=== PATIENT | female | born 1975 | race Caucasian/White ===

== ENCOUNTER → 2016-07-08 | Outpatient (CLI) | payer OTHER ==
--- NOTE | 2016-07-08 11:59 | MA ---
Screening Digital Mammogram With iCAD Analysis Clinical Indications: Routine screening. Her mother was diagnosed with breast cancer in her 40s and a n aunt in her 50s. The patient has had a benign MR guided left breast biopsy. Technique: Standard cephalocaudal projections are obtained. Digital breast tomosynthesis was performe d in the MLO projection with reconstruction at 1.0 mm slice thickness and composite MLO views reconst ructed. This examination is processed by the iCAD computer aided detection system. Breast density: Type C: Heterogeneously dense. Comparison: May 2015, April 2014, December 2012, August 2011, May 2010, May 2009. Findings: CAD was reviewed. No masses, suspicious calcifications or secondary signs of malignancy are seen. There has been no significant change in the appearance of either breast. Impression: Negative mammogram. BI-RADS 1. Recommendation: Routine mammographic screening in one year as long as physical examination is negativ e in this patient with heterogeneously dense breast parenchyma. [facility] will send a result letter to the patient. Negative mammography should not preclude additional workup of a clinically suspicious finding. The patient's information is entered into a reminder system with a target due date for her next mammo gram.
== END ==
LOC: FIMAGING 09:04
DX: Z12.31 Encounter for screening mammogram for malignant neoplasm of breast (principal); Z80.3 Family history of malignant neoplasm of breast
CPT/HCPCS: G0202

== ENCOUNTER 2017-03-07 01:44 | Emergency (ER) | payer OTHER ==
[2017-03-07 01:49] VITALS: RESP 16; TEMP 99.5
--- NOTE | 2017-03-07 01:55 | CPEKG ---
Heart Rate: 67 RR Interval: 896 P-R Interval: 128 QRSD Interval: 86 QT Interval: 416 QTC Interval: 439 P [place]: 49 QRS [place]: 51 T Wave [place]: -8 EKG Severity - ABNORMAL ECG - EKG Impression: SINUS RHYTHM EKG Impression: MULTIPLE VENTRICULAR PREMATURE COMPLEXES EKG Impression: BORDERLINE T ABNORMALITIES, INFERIOR LEADS Electronically Signed By: Susan Gilmore 07-Mar-2017 07:52:34
[2017-03-07] MEDS ORDERED: NS 1,000 ML IV ONE (02:05)
--- NOTE | 2017-03-07 02:09 | EDPHY ---
H & P Stated Complaint: PALPATIONS Time Seen by Provider: 03/07/17 01:52 HPI/ROS: HPI The patient presents with palpitations which began at approximately 1:35 a.m. and awoke her from sleep. They occur approximately once every 5 beats she thinks and have been constant since they started. This is made her somewhat anxious. She has a history of intermittent palpitations that occur when she runs or during her , however this is been the longus lasting episode. She does not have any associated chest pain, shortness of breath, nausea or vomiting. She did eat some sour seeds before going to bed. She had a prior evaluation for palpitations at [facility]. She had a normal stress test.. REVIEW OF SYSTEMS Constitutional: No fever, no chills. Eyes: No discharge. ENT: No sore throat. Cardiovascular: No chest pain, positive for palpitations. Respiratory: No cough, no shortness of breath. Gastrointestinal: No abdominal pain, no vomiting. Genitourinary: No hematuria. Musculoskeletal: No back pain. Skin: No rashes. Neurological: No headache. PMHx: Healthy Soc Hx: Lives at home with and children PHYSICAL General Appearance: Alert, no distress Eyes: Pupils equal and round no pallor or injection ENT, Mouth: Mucous membranes moist Respiratory: There are no retractions, lungs are clear to auscultation Cardiovascular: Regular rate and rhythm Gastrointestinal: Abdomen is soft and non-tender, no masses, bowel sounds normal Neurological: A&O, moves all extremities Skin: Warm and dry, no rashes Musculoskeletal: Neck is supple non tender Extremities: symmetrical, full range of motion Psychiatric: Patient is oriented X 3, there is no agitation Source: Patient Exam Limitations: No limitations - Personal History LMP (Females 10-55): Now Current Tetanus Diphtheria and Acellular Pertussis (TDAP): Yes - Medical/Surgical History Hx Diabetes: No Other PMH: HYPOTHYROID, TONSILECTOMY - Social History Smoking Status: Never smoked Constitutional: Initial Vital Signs Temperature (C) 37.5 C 03/07/17 01:46 Heart Rate 68 03/07/17 01:46 Respiratory Rate 16 03/07/17 01:46 Blood Pressure 149/83 H 03/07/17 01:46 O2 Sat (%) 99 03/07/17 01:46 O2 Delivery Mode Room Air Allergies/Adverse Reactions: ERYTHROMYCIN Allergy (Uncoded 03/16/12 13:01) Abdominal Cramping Home Medications: Medication Instructions Recorded Adderall 03/07/17 Control Pill 03/07/17 Synthroid 03/07/17 Medical Decision Making - Diagnostics EKG Interpretation: EKG: Complete interpretation has been separately recorded in the [employer] archive. Summary impression: Occasional PVCs Differential Diagnosis: This is a 41-year-old healthy female with history of intermittent palpitations who presents with nearly an hour of constant palpitations that awoke her from sleep. Differential diagnosis includes PACs, PVCs, atrial fibrillation, ACS. In the emergency department, patient was placed on the monitor technician which did demonstrate PVCs without any episodes of V-tach. She had basic labs and electrolytes checked including a troponin, all were unremarkable. She was given a L of fluid for presumed volume depletion. She did not have any chest pain or shortness of breath. She will be discharged home with follow up with Cardiology as needed. We have discussed decreasing caffeine use, alcohol use, plenty of sleep and plenty of fluids. - Data Points Laboratory Results: Laboratory Results 03/07/17 02:02 03/07/17 02:02 03/07/17 03/07/17 02:02 02:02 WBC 7.20 10^3/uL 10^3/uL (3.80-9.50) RBC 4.54 10^6/uL 10^6/uL (4.18-5.33) Hgb 14.2 g/dL g/dL (12.6-16.3) Hct 40.5 % % (38.0-47.0) MCV 89.2 fL fL (81.5-99.8) MCH 31.3 pg pg (27.9-34.1) MCHC 35.1 g/dL g/dL (32.4-36.7) RDW 11.9 % % (11.5-15.2) Plt Count 277 10^3/uL 10^3/uL (150-400) MPV 10.9 fL fL (8.7-11.7) Neut % (Auto) 44.9 % % (39.3-74.2) Lymph % (Auto) 46.0 % H % (15.0-45.0) [place] % (Auto) 7.8 % % (4.5-13.0) Eos % (Auto) 0.6 % % (0.6-7.6) Baso % (Auto) 0.6 % % (0.3-1.7) Nucleat RBC Rel Count 0.0 % % (0.0-0.2) Absolute Neuts (auto) 3.24 10^3/uL 10^3/uL (1.70-6.50) Absolute Lymphs (auto) 3.31 10^3/uL H 10^3/uL (1.00-3.00) Absolute Monos (auto) 0.56 10^3/uL 10^3/uL (0.30-0.80) Absolute Eos (auto) 0.04 10^3/uL 10^3/uL (0.03-0.40) Absolute Basos (auto) 0.04 10^3/uL 10^3/uL (0.02-0.10) Absolute Nucleated RBC 0.00 10^3/uL 10^3/uL (0-0.01) Immature Gran % 0.1 % % (0.0-1.1) Immature Gran # 0.01 10^3/uL 10^3/uL (0.00-0.10) Sodium 138 mEq/L mEq/L (134-144) Potassium 3.8 mEq/L mEq/L (3.5-5.2) Chloride 103 mEq/L mEq/L (97-110) Carbon Dioxide 22 mEq/l mEq/l (22-31) Anion Gap 13 mEq/L mEq/L (8-16) BUN 11 mg/dL mg/dL (7-23) Creatinine 0.9 mg/dL mg/dL (0.6-1.0) Estimated GFR > 60 Glucose 91 mg/dL mg/dL (70-100) Calcium 9.9 mg/dL mg/dL (8.5-10.4) Magnesium 1.8 mg/dL mg/dL (1.6-2.3) Troponin I < 0.012 ng/mL ng/mL (0.000-0.034) TSH 4.660 uIU/mL uIU/mL (0.465-4.680) Medications Given: Discontinued Medications Sodium Chloride (Ns) 1,000 mls @ 0 mls/hr IV EDNOW ONE; Wide Open PRN Reason: Protocol Stop: 03/07/17 02:06 Last Admin: 03/07/17 02:16 Dose: 1,000 mls Departure - Departure Disposition: Home, Routine, Self-Care Clinical Impression: Palpitations, PVCs (premature ventricular contractions) Condition: Good Instructions: Palpitations (ED) Additional Instructions: Please make sure to drink plenty of fluids. You should follow up with your regular doctor in a few days if your symptoms continue. You could also follow up with Cardiology to do a Holter monitor. Referrals: Yun Arreola MD [Primary Care Provider] - As per Instructions [facility] [Provider Group] - As per Instructions
[2017-03-07 02:20] LABS: % IMMATURE GRANULYOCYTES 0.1 % (0.0-1.1); ABSOLUTE IMMATURE GRANULOCYTES 0.01 10^3/uL (0.00-0.10); ADD DIFF? NO; ADD MORPH? NO; ADD SCAN? NO; ATYPICAL LYMPHOCYTE FLAG 10 (0-99); FRAGMENT RBC FLAG 0 (0-99); HEMATOCRIT 40.5 % (38.0-47.0); HEMOGLOBIN 14.2 g/dL (12.6-16.3); LEFT SHIFT FLG 0 (0-99); LIPEMIA HEMOLYSIS FLAG 90 (0-99); MEAN CELL HEMOGLOBIN 31.3 pg (27.9-34.1); MEAN CELL HEMOGLOBIN CONCENTR. 35.1 g/dL (32.4-36.7); MEAN CELL VOLUME 89.2 fL (81.5-99.8); MEAN PLATELET VOLUME 10.9 fL (8.7-11.7); PLATELET CLUMPS FLAG 0 (0-99); PLATELET COUNT 277 10^3/uL (150-400); RED BLOOD CELL COUNT 4.54 10^6/uL (4.18-5.33); RED CELL DISTRIBUTION WIDTH 11.9 % (11.5-15.2)
[2017-03-07 02:32] LABS: ANION GAP 13 mEq/L (8-16); CALCIUM 9.9 mg/dL (8.5-10.4); CARBON DIOXIDE 22 mEq/l (22-31); CHLORIDE 103 mEq/L (97-110); CREATININE 0.9 mg/dL (0.6-1.0); GLOMERULAR FILTRATION RATE > 60; GLUCOSE 91 mg/dL (70-100); MAGNESIUM 1.8 mg/dL (1.6-2.3); POTASSIUM 3.8 mEq/L (3.5-5.2); SODIUM 138 mEq/L (134-144)
[2017-03-07 02:44] LABS: TROPONIN I < 0.012 ng/mL (0.000-0.034)
[2017-03-07 03:49] VITALS: BP 136/82; PULSE 63; O2SAT 97
== END 2017-03-07 03:49 | disposition home or self-care (01) ==
DX: I49.3 Ventricular premature depolarization (principal); E86.9 Volume depletion, unspecified

== ENCOUNTER → 2017-07-10 | Outpatient (CLI) | payer OTHER | LOC: FIMAGING 11:22 | PROVIDERS: ATTEND Obstetrics & Gynecology | DX: Z12.31 Encounter for screening mammogram for malignant neoplasm of breast (principal); Z80.3 Family history of malignant neoplasm of breast ==

== ENCOUNTER → 2018-08-20 | Outpatient (CLI) | payer OTHER | LOC: FIMAGING 09:50 | PROVIDERS: ATTEND Obstetrics & Gynecology | DX: Z12.31 Encounter for screening mammogram for malignant neoplasm of breast (principal); Z80.3 Family history of malignant neoplasm of breast ==